=== PATIENT | female | born 1980 | race Caucasian/White ===

== ENCOUNTER 2020-12-04 10:25 | Emergency (ER) | payer OTHER, SELFPAY ==
[2020-12-04 10:29] VITALS: BP 132/102; PULSE 94; RESP 19; TEMP 37.4; O2SAT 100; BMI 21.5
[2020-12-04 10:42] VITALS: BP 126/99; BP 134/100; PULSE 82; PULSE 90; RESP 16; TEMP 37.4; O2SAT 99
--- NOTE | 2020-12-04 11:00 | EX.ED.DYSGE1 ---
HPI History of Present Illness Chief Complaint: Weakness Informant: patient Narrative Narrative: This is a patient is overall healthy. She is a former smoker. She has had runny nose congestion mild sore throat slight cough myalgias malaise and decreased appetite for about 7 days now. She was diagnosed with Covid yesterday. Her daughter had similar symptoms but was diagnosed negative on Saturday. She is resolved. The patient has not. Patient also reports assuming she had Covid earlier in the year. She had another daughter that tested positive and everybody had similar symptoms. She states those symptoms lasted for less time than this. There is been no nausea or vomiting. No hemoptysis. No chest pain. She was just concerned because she still having symptoms after a week. She has no history of diabetes, heart disease, obesity, immunosuppression. PFSH PFSH Medical History no medical history Home Medications NK 12/04/20 [History Last Taken Unknown] Allergy/AdvReac Type Severity Reaction Status Date / Time No Known Allergies Allergy Verified 12/04/20 10:27 Social History Smoking Status: Former smoker ROS ROS ED Constitutional Constitutional ED: Reports chills, fever(s) and subjective Eyes Eyes: Denies blurry vision ENT ENT ED: Reports rhinorrhea and sore throat Cardiovascular Cardiovascular: Denies chest pain or palpitations Respiratory/Chest Respiratory/Chest: Reports cough; Denies sputum Gastrointestinal Gastrointestinal: Denies abdominal pain, nausea or vomiting Genitourinary Genitourinary ED: Denies dysuria or hematuria Musculoskeletal Musculoskeletal: Reports myalgias Integumentary Denies rash Neurologic Neurologic: Denies headache(s), paresthesias or weakness Psychiatric Psychiatric: Denies anxiety or depression Endocrine Endocrinology: Denies polydipsia or polyuria Allergic/Immunologic Allergic/Immunologic ED: Denies mouth swelling or urticaria EXAM Physical Exam Const Vital Signs: 12/04/20 10:29 12/04/20 10:42 Temperature 99.3 F H 99.3 F H Temperature Source Oral Temporal Pulse Rate 94 82 Respiratory Rate 19 H 16 Respiratory Effort Normal Respiratory Pattern Normal Blood Pressure 132/102 H 126/99 H Blood Pressure Mean 112 108 Pulse Ox 100 99 Oxygen Delivery Method Room Air Room Air Positive well nourished and well developed General Appearance ED: well developed and NAD; Negative for pallor HEENT Reports moist mucous membranes Negative for trauma Eyes General Eye ED: Negative for pale conjunctiva or scleral icterus Neck no JVD Resp normal respiratory effort and clear to auscultation bilaterally Effort and Inspection: Negative for pain with movement Auscultation: Negative for rales, rhonchi or wheezes Cardio regular rate, regular rhythm and no murmurs GI normal to inspection, nondistended, normoactive bowel sounds and non-tender Palpation: soft Back/Spine no CVA tenderness Extremity General Extremety ED: Negative for edema or tenderness General Extremity: Negative for edema Neuro oriented x3 Sensorium / Orientation: alert Psych mental status grossly normal Skin no rashes or lesions noted General Skin Exam: Negative for jaundice or pallor MDM MDM MDM Narrative Medical decision making narrative: Patient is not hypoxic. She is not having vomiting. Not having chest pain or hemoptysis. Chest x-ray shows no acute process. I think patient is good for going home. She actually does not meet any criteria for monoclonal antibody. She should resolve with conservative therapy. Radiography Diagnostic Testing: Radiology Impression Chest X-Ray 12/04/20 11:15 IMPRESSION: No radiographic evidence of acute cardiopulmonary disease. at 1137 Reported and signed by: Cornel Malagon MD Electronically Signed: Cornel Malagon MD at 11:36 EDT Tel , Service support , Discharge Plan Triage Chief Complaint: Weakness ED Provider: Bull Sandoval Dx/Rx/DC Orders Clinical Impression: COVID Instructions: Caring for Someone Who Has COVID-19 Prescriptions: No Action NK RF: 0 Primary Care Provider: Care Physician,No Primary Referrals: Mic Colin MD [STAFF PHYSICIAN] - 1 Week if not improving Care Physician,No Primary [Primary Care Provider] - Disposition Disposition: Home, Self Care
--- NOTE | 2020-12-04 11:15 | RAD_ITS ---
EXAM: XR CHEST, 1 VIEW : 1980 CLINICAL INDICATION: cough, covid TECHNIQUE: Frontal view of the chest. This report was created using [employer] report generation technology. COMPARISON: None. FINDINGS: LUNGS AND PLEURAL SPACES: Unremarkable. No consolidation or edema. No pneumothorax. No effusion. HEART: Unremarkable. Cardiac silhouette not enlarged. MEDIASTINUM: Central airways and mediastinal contour are unremarkable. BONES/JOINTS: Unremarkable. SOFT TISSUES: Unremarkable. RAD/Chest 1 View (Portable) IMPRESSION: No radiographic evidence of acute cardiopulmonary disease. at 1137 Reported and signed by: Cornel Malagon MD Electronically Signed: Cornel Malagon MD at 11:36 EDT Tel , Service support ,
[2020-12-04 12:04] VITALS: BP 126/75; PULSE 86; RESP 14; RESP 15; TEMP 37; O2SAT 98
== END 2020-12-04 12:12 | disposition home or self-care (01) ==
PROVIDERS: Emergency Provider Emergency Medicine
DX: U07.1 COVID-19 (principal); Z87.891 Personal history of nicotine dependence
CPT/HCPCS: 71045; 99282